=== PATIENT | female | born 1980 | race Caucasian/White ===

== ENCOUNTER 2020-09-07 12:17 | Emergency (ER) | payer OTHER, MEDICAID ==
--- NOTE | 2020-09-07 12:43 | EDM.PDOC ---
ED HPI GENERAL MEDICAL PROBLEM - General Chief Complaint: Lower Extremity Injury/Pain Stated Complaint: RT ANKLE INJURY Time Seen by Provider: 09/07/20 12:25 Source of Information: Reports: Patient, RN Notes Reviewed History Limitations: Reports: No Limitations - History of Present Illness INITIAL COMMENTS - FREE TEXT/NARRATIVE: Patient is a 40-year-old female who presents to the ER for the evaluation of a right ankle injury. Patient notes she was wrestling with her boyfriend last night, when she fell off the bed, and her boyfriend fell on top of her right ankle. She is having pain on the lateral portion of her right ankle, and it seems to radiate up her leg, but does not reach her knee. States that the pain is worsened with movement, she is not been able to put much weight on it at all. She took 1 tablet of hydrocodone that she had leftover from a different injury, she states that this did allow her to sleep. She states she had slight numbness or tingling into her toes however this is gotten better. Patient denies any other sick-like symptoms, fever/chills, cough/shortness of breath, nausea/vomiting/diarrhea. Patient denies any chance of as she states she is had a hysterectomy. Treatments AUDIOLOGIST: Reports: Other Medication(s) Other Treatments AUDIOLOGIST: hydro from hysterectomy Right Foot Pain Score (Numeric/FACES): 5 - Related Data Allergies Allergy/AdvReac Type Severity Reaction Status Date / Time ciprofloxacin [From Cipro] Allergy Nausea and Verified 09/07/20 12:24 Vomiting Home Meds: Home Meds Hydrocodone/Acetaminophen [HYDROcodone-Acetaminophen 5-325 MG] 1 tab PO ASDIRECTED 09/07/20 [History] LORazepam [Lorazepam] 0.5 mg PO ASDIRECTED 09/07/20 [History] Omeprazole 20 mg PO DAILY 09/07/20 [History] Past Medical History HEENT History: Reports: Impaired Vision Cardiovascular History: Reports: None Respiratory History: Reports: Bronchitis, Recurrent Gastrointestinal History: Reports: GERD Genitourinary History: Reports: UTI, Recurrent 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: Musculoskeletal History: Reports: Arthritis, Neck Pain, Chronic Neurological History: Reports: Migraines Psychiatric History: Reports: Anxiety Endocrine/Metabolic History: Reports: None Hematologic History: Reports: None Immunologic History: Reports: None Oncologic (Cancer) History: Reports: None Dermatologic History: Reports: None - Infectious Disease History Infectious Disease History: Reports: Chicken Pox, Shingles - Past Surgical History HEENT Surgical History: Reports: Oral Surgery Female Surgical History: Reports: Hysterectomy Social & Family History - Family History Family Medical History: No Pertinent Family History Cardiac: Reports: High Cholesterol, Hypertension Oncologic: Reports: Breast, Cervix - Tobacco Use Tobacco Use Status *Q: Current Every Day Tobacco User Years of Tobacco use: 15 Packs/Tins Daily: 0.5 - Caffeine Use Caffeine Use: Reports: Soda - Recreational Drug Use Recreational Drug Use: No Review of Systems - Review of Systems Review Of Systems: Comprehensive ROS is negative, except as noted in HPI. ED EXAM, GENERAL - Physical Exam Exam: See Below Exam Limited By: No Limitations General Appearance: Alert, WD/WN, No Apparent Distress Respiratory/Chest: No Respiratory Distress, Lungs Clear, Normal Breath Sounds, No Accessory Muscle Use, Chest Non-Tender Cardiovascular: Normal Peripheral Pulses, Regular Rate, Rhythm, No Edema Extremities: Normal Inspection, Normal Capillary Refill, Limited Range of Motion (of right ankle d/t pain) Neurological: Alert, Oriented, Normal Cognition, No Motor/Sensory Deficits Psychiatric: Normal Affect, Normal Mood Skin Exam: Warm, Dry, Intact, Normal Color, No Rash Course - Vital Signs Last Recorded V/S: Last Vital Signs Temp 97.7 F 09/07/20 12:28 Pulse 87 09/07/20 12:28 Resp 16 09/07/20 12:28 BP 121/84 09/07/20 12:28 Pulse Ox 98 09/07/20 12:28 - Re-Assessments/Exams Free Text/Narrative Re-Assessment/Exam: 09/07/20 12:42 Patient presents to the ER for evaluation of her right ankle injury. We will go ahead and get x-rays of the area for evaluation. 09/07/20 13:34 X-rays have resulted, and there are no abnormalities identified on the right ankle exam, no fracture dislocation or other bony abnormalities appreciated. We will go ahead and Oh wrap the patient's ankle, provide her with some crutches for ambulation, and discharged home with general recommendations. Departure - Departure Time of Disposition: 13:35 Disposition: Home, Self-Care 01 Condition: Good Clinical Impression: Moderate right ankle sprain Qualifiers: Encounter type: initial encounter Qualified Code(s): S93.401A - Sprain of unspe cified ligament of right ankle, initial encounter - Discharge Information *PRESCRIPTION DRUG MONITORING PROGRAM REVIEWED*: No *COPY OF PRESCRIPTION DRUG MONITORING REPORT IN PATIENT JOSE: No Instructions: Ankle Sprain, [id number] Referrals: PCP,None [Primary Care Provider] - Forms: ED Department Discharge, ED Return to Work/School Form Additional Instructions: You have been evaluated in the ED for your right ankle pain. You are most likely suffering from a ankle sprain in nature. Your x-ray demonstrated no acute fracture or other bony abnormalities of your right ankle joint. Please use ice as tolerated to the affected area. Please try to elevate the affected area to relieve swelling. You have also been provided crutches, to help with weightbearing while your ankle pain is at its worse, this will hopefully get better in a few days. You may take Tylenol 500 mg or ibuprofen 600mg q6 hrs for pain relief. Please do so until you have a tolerable level of pain with activity. Do not exceed 4000mg Tylenol or 3200mg ibuprofen in a 24 hour time period. Please return to ED if your symptoms should change or worsen. Sepsis Event Note (ED) - Evaluation Sepsis Screening Result: No Definite Risk - Focused Exam Vital Signs: Vital Signs Temp Pulse Resp BP Pulse Ox 09/07/20 12:28 97.7 F 87 16 121/84 98
--- NOTE | 2020-09-07 13:16 | CR ---
Right ankle: 4 views of the right ankle were obtained. Comparison: No prior right ankle study is available. Joint spaces are preserved. No fracture, dislocation or other bony abnormality is appreciated. Impression: 1. No abnormality is identified on right ankle exam. Diagnostic code #1
== END 2020-09-07 13:45 | disposition home or self-care (01) ==
LOC: JD.ED 12:17
DX: S93.401A Sprain of unspecified ligament of right ankle, initial encounter (principal); K21.9 Gastro-esophageal reflux disease without esophagitis; Z88.1 Allergy status to other antibiotic agents; Z79.899 Other long term (current) drug therapy; W06.XXXA Fall from bed, initial encounter; Y93.72 Activity, wrestling
CPT/HCPCS: 73610-26-RT; 73610-RT; 99282; 99283-25

== ENCOUNTER 2021-09-12 15:09 | Emergency (ER) | payer BC, MEDICAID ==
[2021-09-12] MEDS ORDERED: Sodium Chloride 0.9% 10 ML Syringe FLUSH PRN (15:36)
== END 2021-09-12 17:22 | disposition home or self-care (01) ==
LOC: JD.ED 15:09
DX: R07.89 Other chest pain (principal); K21.9 Gastro-esophageal reflux disease without esophagitis; F17.210 Nicotine dependence, cigarettes, uncomplicated; Z79.899 Other long term (current) drug therapy; Z88.1 Allergy status to other antibiotic agents
CPT/HCPCS: 36415; 71046; 71046-26; 80053; 83880; 84484; 85025; 85379; 93005; 99285

== ENCOUNTER 2022-07-10 20:20 | Emergency (ER) | payer OTHER, MEDICAID ==
[2022-07-10] MEDS ORDERED: HYDROmorphone 1 MG/ML Syringe IM ONE (20:49)
[2022-07-10] MEDS ORDERED: Orphenadrine 100 MG Tab.ER PO STA (22:27)
[2022-07-10] MEDS ORDERED: Naproxen 500 MG Tab PO STA (22:27)
== END 2022-07-10 22:48 | disposition home or self-care (01) ==
LOC: JD.ED 20:20
DX: S16.1XXA Strain of muscle, fascia and tendon at neck level, initial encounter (principal); S30.0XXA Contusion of lower back and pelvis, initial encounter; K21.9 Gastro-esophageal reflux disease without esophagitis; F17.210 Nicotine dependence, cigarettes, uncomplicated; Z86.16 Personal history of COVID-19; Z88.1 Allergy status to other antibiotic agents; Z79.899 Other long term (current) drug therapy; V43.52XA Car driver injured in collision with other type car in traffic accident, initial encounter; Y92.410 Unspecified street and highway as the place of occurrence of the external cause
CPT/HCPCS: 72125; 72220; 96372; 99284; A9270; J1170; 99283

== ENCOUNTER 2022-12-06 00:26 | Emergency (ER) | payer MEDICAID, OTHER ==
[2022-12-06 00:54] LABS: APPEARANCE,URINE CLEAR (Clear); BILIRUBIN,URINE NEGATIVE (Negative); COLOR,URINE YELLOW (Yellow); GLUCOSE,URINE NEGATIVE (Negative); KETONES,URINE NEGATIVE (Negative); LEUKOCYTE ESTERASE,URINE 3+ (Negative); NITRITE,URINE NEGATIVE (Negative); OCCULT BLOOD,URINE 2+ (Negative); PROTEIN,URINE NEGATIVE (Negative); UROBILINOGEN,URINE 0.2 (0.2-1.0)
[2022-12-06 01:25] LABS: BACTERIA,URINE FEW /hpf (FEW); EPITHELIAL CELLS,URINE 0-5 /hpf (0-5); MUCUS,URINE NOT SEEN /hpf (FEW); RBC,URINE 0-5 /hpf (0-5)
[2022-12-06] MEDS ORDERED: Morphine 2 MG/ML SYRINGE IVPUSH ONE (01:31)
[2022-12-06 01:50] LABS: BASOPHILS ABSOLUTE AUTO 0.1 K/mm3 (0.0-0.2); BASOPHILS PERCENT AUTO 0.5 % (0.0-1.0); EOSINOPHILS ABSOLUTE AUTO 0.2 K/mm3 (0.0-0.4); EOSINOPHILS PERCENT AUTO 1.2 % (0.0-6.0); HEMATOCRIT 40.9 % (37.0-47.0); HEMOGLOBIN 14.1 gm/dl (12.0-16.0); IMMATURE GRAN ABSOLUTE AUTO 0.06 K/mm3 (0.00-0.05); IMMATURE GRAN PERCENT AUTO 0.4 % (0.0-0.4); LYMPHOCYTES ABSOLUTE AUTO 4.8 K/mm3 (1.0-4.8); LYMPHOCYTES PERCENT AUTO 31.3 % (24.0-44.0); MEAN CORPUSCULAR HEMOGLOBIN 30.6 pg (28.0-32.0); MEAN CORPUSCULAR HGB CONC 34.5 g/dl (32.0-36.0); MEAN CORPUSCULAR VOLUME 88.7 fl (83.0-99.0); MEAN PLATELET VOLUME 9.6 fl (9.4-12.3); MONOCYTES ABSOLUTE AUTO 1.1 K/mm3 (0.0-0.8); MONOCYTES PERCENT AUTO 7.4 % (0.0-8.0); NEUTROPHILS ABSOLUTE AUTO 9.1 K/mm3 (1.8-7.7); NEUTROPHILS PERCENT AUTO 59.2 % (41.0-71.0); PLATELET COUNT,PLT 340 K/mm3 (150-400); RED BLOOD CELL COUNT 4.61 M/mm3 (4.10-5.30); WHITE BLOOD CELL COUNT,WBC 15.36 K/mm3 (3.9-11.3)
[2022-12-06 02:21] LABS: A/G RATIO 0.9 (1-2); ALBUMIN 3.9 g/dl (3.4-5.0); ANION GAP 14.5 (5-15); BILIRUBIN TOTAL 0.2 mg/dL (0.2-1.0); CALCIUM 9.2 mg/dL (8.5-10.1); EST CRCL DRUG DOSING (CG) 59.15 mL/min; POTASSIUM,K 3.5 mEq/L (3.5-5.1); PROTEIN TOTAL,TP 8.2 g/dl (6.4-8.2)
[2022-12-06] MEDS ORDERED: Acetaminophen 325 MG Tab PO ONE (04:41)
[2022-12-06] MEDS ORDERED: cefTRIAXone 2 GM in Sodium Chloride 0.9% 100 ML IV ONE (04:41)
== END 2022-12-06 06:03 | disposition home or self-care (01) ==
LOC: JD.ED 00:26
DX: N39.0 Urinary tract infection, site not specified (principal); K21.9 Gastro-esophageal reflux disease without esophagitis; Z86.16 Personal history of COVID-19; Z88.1 Allergy status to other antibiotic agents; Z79.899 Other long term (current) drug therapy
CPT/HCPCS: 36415; 74150; 80053; 81001; 85025; 96365; 96375; 99284; A9270; J0696; J2270; J3490

== ENCOUNTER 2023-03-06 11:42 | Emergency (ER) | payer MEDICAID ==
[2023-03-06] MEDS ORDERED: cefTRIAXone 1 GM, Lidocaine 1% 2.1 ML IM ONE ×2 (14:08)
== END 2023-03-06 15:05 | disposition home or self-care (01) ==
LOC: JD.ED 11:42
DX: H65.91 Unspecified nonsuppurative otitis media, right ear (principal); K21.9 Gastro-esophageal reflux disease without esophagitis; Z86.16 Personal history of COVID-19; Z88.1 Allergy status to other antibiotic agents
CPT/HCPCS: 99283

== ENCOUNTER 2023-07-18 06:16 | Emergency (ER) | payer MEDICAID ==
[2023-07-18] MEDS: methylPREDNISolone Sodium Succinate 125 MG/2 ML SDV IM ONE (07:48)
[2023-07-18] MEDS: Ketorolac 10 MG Tab PO ONE (07:48)
== END 2023-07-18 09:25 | disposition home or self-care (01) ==
LOC: JD.ED 06:16
DX: M19.012 Primary osteoarthritis, left shoulder (principal); K21.9 Gastro-esophageal reflux disease without esophagitis; F17.210 Nicotine dependence, cigarettes, uncomplicated; Z88.8 Allergy status to other drugs, medicaments and biological substances; Z79.899 Other long term (current) drug therapy; Z86.19 Personal history of other infectious and parasitic diseases
CPT/HCPCS: 73030; 96372; 99283; A9270; J2930; 99284

== ENCOUNTER 2024-10-31 10:09 | Emergency (ER) | payer MEDICAID ==
[2024-10-31] MEDS: Ketorolac 60 MG/2 ML SDV IM ONE (11:16)
== END 2024-10-31 11:30 | disposition home or self-care (01) ==
LOC: JD.ED 10:09
DX: M76.32 Iliotibial band syndrome, left leg (principal); E78.00 Pure hypercholesterolemia, unspecified; Z88.1 Allergy status to other antibiotic agents; Z79.899 Other long term (current) drug therapy
CPT/HCPCS: 96372; 99283; A9270; J1885